=== PATIENT | female | born 1970 | race Caucasian/White ===

== ENCOUNTER 2016-06-07 10:05 | Emergency (ER) | payer OTHER ==
[~2016-06-07] VITALS: Ht 160 cm; Wt 54.4 kg
[2016-06-07] MEDS ORDERED: NEXIUM5 MG PO (10:21)
[2016-06-07] MEDS ORDERED: SINGULAIR5 MG PO (10:22)
[2016-06-07] MEDS ORDERED: CELEXA20 MG PO (10:22)
[2016-06-07] MEDS ORDERED: DEPO PROVER150 MG/M1 IM (10:23)
== END 2016-06-07 13:22 | disposition home or self-care (01) ==
LOC: ED 10:05
DX: S42.402A Unspecified fracture of lower end of left humerus, initial encounter for closed fracture (principal); Z79.899 Other long term (current) drug therapy; Z88.8 Allergy status to other drugs, medicaments and biological substances; V49.9XXA Car occupant (driver) (passenger) injured in unspecified traffic accident, initial encounter; Y93.89 Activity, other specified; Y92.89 Other specified places as the place of occurrence of the external cause; Y99.9 Unspecified external cause status

== ENCOUNTER 2016-11-04 10:04 | Emergency (ER) | payer OTHER ==
[~2016-11-04] VITALS: Ht 160 cm; Wt 99.8 kg
[~2016-11-04 10:04] MED LIST: CELEXA20 MG PO; DEPO PROVER150 MG/M1 IM; NEXIUM5 MG PO; SINGULAIR5 MG PO
[2016-11-04] MEDS ORDERED: TIZANIDINE HCL4 MG PO (10:10)
[2016-11-04] MEDS ORDERED: [UNRECOGNIZED DRUG - OTHER] SL (10:10)
[2016-11-04] MEDS ORDERED: [UNRECOGNIZED DRUG - OTHER] SL (10:10)
[2016-11-04 10:50] LABS: BASO # 0.1 10*3/uL (0.0-0.1); BASO % 0.9 % (0.0-1.0); EOS # 0.3 10*3/uL (0.0-0.4); EOS % 4.1 % (1.0-4.0); HEMOGLOBIN 13.8 g/dl (12.0-16.0); LYMPH # 1.8 10*3/uL (1.3-4.4); LYMPH % 27.4 % (27.0-41.0); MEAN CELL VOLUME 86.2 fl (81.0-99.0); MEAN CORPUSCULAR HGB 27.7 pg (27.0-31.0); MEAN CORPUSCULAR HGB CONC 32.1 g/dl (33.0-37.0); MEAN PLATELET VOLUME 11.5 fl (9.6-12.3); MONO # 0.5 10*3/uL (0.1-1.0); MONO % 7.3 % (3.0-9.0); PLATELET COUNT AUTOMATED 244 10*3/uL (130-400); RED BLOOD COUNT 4.99 10*6/uL (4.10-5.10); RED CELL DISTRI WIDTH 13.7 % (0-14.5); WHITE BLOOD COUNT 6.6 10*3/uL (4.8-10.8)
[2016-11-04 10:55] LABS: BILIRUBIN NEGATIVE (NEGATIVE); BLOOD NEGATIVE (NEGATIVE); CLARITY CLEAR (CLEAR); COLOR YELLOW (YELLOW); GLUCOSE NEGATIVE (NEGATIVE); KETONE NEGATIVE (NEGATIVE); LEUKO ESTERASE NEGATIVE (NEGATIVE); NITRITE NEGATIVE (NEGATIVE); PROTEIN NEGATIVE (NEGATIVE); SPECIFIC GRAVITY 1.015 (1.005-1.030); UROBILINOGEN 0.2 E.U./dl (0.2-1.0)
[2016-11-04 11:05] LABS: ALBUMIN 3.6 gm/dl (3.1-4.5); ALKALINE PHOSPHATASE 94 U/L (45-117); BILIRUBIN, TOTAL 0.4 mg/dl (0.2-1.0); BUN 9 mg/dl (7-24); C-REACTIVE PROTEIN 0.77 MG/DL (0-0.3); CARBON DIOXIDE 26 mmol/L (21-32); CHLORIDE 107 mmol/L (98-107); EST GLOM FILT AFRICAN AMERICAN > 60 ml/min; GLUCOSE 93 mg/dL (65-99); POTASSIUM 3.9 mmol/L (3.5-5.1); SGOT/AST 16 IU/L (3-35); SGPT/ALT 25 U/L (12-78); SODIUM 144 mmol/L (136-145); TOTAL PROTEIN 7.4 gm/dL (6.4-8.2)
[2016-11-04 11:46] LABS: BACTERIA 1+; URINE REFLEX COMMENT NO (NO); WBC 0-2 wbc/hpf (0-5)
[2016-11-04] MEDS ORDERED: ZANTAC 150150 MG PO (11:56)
== END 2016-11-04 12:04 | disposition home or self-care (01) ==
LOC: ED 10:04
PROVIDERS: Physician Assistant
DX: R10.33 Periumbilical pain (principal); Z79.899 Other long term (current) drug therapy; Z88.8 Allergy status to other drugs, medicaments and biological substances; Z88.1 Allergy status to other antibiotic agents; Z98.890 Other specified postprocedural states

== ENCOUNTER → 2017-01-12 | Day surgery (SDC) | payer OTHER ==
[~2017-01-12] VITALS: Ht 160 cm; Wt 99.8 kg
[~2017-01-12] MED LIST changes: +EPIPEN 2-P0.3 MG/0.3 SQ; +TIZANIDINE HCL4 MG PO; +ZANTAC 150150 MG PO; +[UNRECOGNIZED DRUG - OTHER] SL; +[UNRECOGNIZED DRUG - OTHER] SL
--- NOTE | ~2017-01-12 | O ---
[place], [place] OPERATIVE NOTE [id number] UNIT #: [id number] ROOM: DOCTOR: ALTAGRACIA ZAVALA MD BIRTHDATE: [birth year] DOS: 01/12/2017 INDICATIONS: A 46-year-old who has presented with chief complaint of dyspepsia despite the fact that she is on Nexium 40 mg daily. She has also complained of abdominal pain with dyspepsia. ALLERGIES: TO BACTRIM. PAST MEDICAL HISTORY: GERD and anxiety. PAST SURGICAL HISTORY: . PROCEDURE: Today's procedure part of investigation is panendoscopy and colonoscopy. PREMEDICATION: Versed and Diprivan. SCOPE: Olympus folding colonoscope 10L video. REPORT: After putting the patient in the left lateral position and after application of lubricant to the scope, the scope was introduced. Thereafter, under direct visualization, I advanced through the length of colon without difficulty. Difficulty only been at about hepatic flexure, which is fixed because of the and adhesions that she has had. This, however, overcame with the appropriate maneuvers. Ileocecal valve was defined and appendiceal was noticed. Air was suctioned out. The patient was gradually extubated, tolerated the procedure well. IMPRESSION: Normal colonoscopic examination otherwise. PLAN AND DISCUSSION: High fiber fruit diet. On the other hand, we are going to proceed with panendoscopy. ALTAGRACIA ZAVALA MD CM:OPRECORD:OPERATIVE NOTE [id number] ALTAGRACIA ZAVALA MD 01/12/17 1349 interface
--- NOTE | ~2017-01-12 | O ---
[place], [place] OPERATIVE NOTE NAME: [facility] [id number] UNIT #: [id number] ROOM: DOCTOR: SALLY JUNG,ALTAGRACIA BIRTHDATE: [birth year] DOS: 01/12/2017 INDICATIONS: The patient has presented with epigastric abdominal pain. The patient is on Nexium 40 mg every day. PROCEDURE: Today's procedure part of investigation is panendoscopy plus biopsy. PREMEDICATION: Versed and Diprivan. SCOPE: Olympus forward-viewing gastroscope Q10 video. REPORT: After putting the patient in the left lateral position and after application of lubricant to the scope, the scope was introduced. Thereafter, under direct visualization, I advanced through the length of the esophagus without difficulty. Esophagus cervicothoracic distally carefully examined and the small hiatal hernia seen. Mild gastritis noticed. Antral biopsy obtained. Duodenal bulb, second and third part within normal limits. The patient extubated, tolerated procedure well. IMPRESSION: Mild gastritis, small hiatal hernia. PLAN: Status post biopsy for H. pylori. We are awaiting biopsy results and clinical reassessment, antireflux with elevation of the head of the bed 6 inches all time. We are going to organize a CT scan of the abdomen and pelvis with oral and IV contrast in search of abdominal pain if she has not had it already done. We are going to talk to her again postoperatively. ALTAGRACIA ZAVALA MD CM:OPRECORD:OPERATIVE NOTE [id number] ALTAGRACIA ZAVALA MD 01/12/17 1352 interface
[2017-01-12 10:55] VITALS: BP 124/73
[2017-01-12 12:24] VITALS: BP 117/48
[2017-01-12 12:39] VITALS: BP 118/63
[2017-01-12 12:51] VITALS: BP 118/80
== END | disposition home or self-care (01) ==
LOC: SDC 01-10 11:00
DX: K29.50 Unspecified chronic gastritis without bleeding (principal); K44.9 Diaphragmatic hernia without obstruction or gangrene; K21.9 Gastro-esophageal reflux disease without esophagitis; R19.4 Change in bowel habit; F41.9 Anxiety disorder, unspecified; Z88.8 Allergy status to other drugs, medicaments and biological substances; J45.909 Unspecified asthma, uncomplicated; Z87.01 Personal history of pneumonia (recurrent); Z82.49 Family history of ischemic heart disease and other diseases of the circulatory system; Z82.3 Family history of stroke; Z79.899 Other long term (current) drug therapy

== ENCOUNTER 2017-07-01 08:50 | Emergency (ER) | payer OTHER ==
[~2017-07-01] VITALS: Ht 160 cm; Wt 99.8 kg
== END 2017-07-01 11:04 | disposition home or self-care (01) ==
LOC: ED 08:50
DX: S05.02XA Injury of conjunctiva and corneal abrasion without foreign body, left eye, initial encounter (principal); S05.01XA Injury of conjunctiva and corneal abrasion without foreign body, right eye, initial encounter; Z88.2 Allergy status to sulfonamides; Z88.1 Allergy status to other antibiotic agents; X58.XXXA Exposure to other specified factors, initial encounter; Y93.H1 Activity, digging, shoveling and raking; Y92.89 Other specified places as the place of occurrence of the external cause; Y99.8 Other external cause status

== ENCOUNTER 2018-11-24 09:20 | Emergency (ER) | payer OTHER ==
[~2018-11-24] VITALS: Ht 160 cm; Wt 99.8 kg
== END 2018-11-24 10:05 | disposition home or self-care (01) ==
LOC: ED 09:20
DX: L02.415 Cutaneous abscess of right lower limb (principal); L03.115 Cellulitis of right lower limb; Z88.8 Allergy status to other drugs, medicaments and biological substances; Z88.2 Allergy status to sulfonamides; Z79.899 Other long term (current) drug therapy

== ENCOUNTER → 2020-05-22 | Outpatient (CLI) | payer SELFPAY | END | disposition home or self-care (01) | LOC: COVID19 10:10 | PROVIDERS: ATTEND Internal Medicine | DX: U07.1 COVID-19 (principal) ==

== ENCOUNTER 2020-10-30 18:10 | Emergency (ER) | payer OTHER ==
[~2020-10-30] VITALS: Ht 160 cm; Wt 101.2 kg
[2020-10-30] MEDS ORDERED: Motrin,Rufen800 MG PO (21:12)
[2020-10-30] MEDS ORDERED: CYCLOBENZAPRINE5 M3 PO (21:12)
== END 2020-10-30 21:30 | disposition home or self-care (01) ==
LOC: ED 18:10
DX: S39.012A Strain of muscle, fascia and tendon of lower back, initial encounter (principal); M54.6 Pain in thoracic spine; Z88.8 Allergy status to other drugs, medicaments and biological substances; Z88.2 Allergy status to sulfonamides; Z79.899 Other long term (current) drug therapy; Z98.51 Tubal ligation status; Z98.890 Other specified postprocedural states; V89.2XXA Person injured in unspecified motor-vehicle accident, traffic, initial encounter; Y93.I9 Activity, other involving external motion; Y92.488 Other paved roadways as the place of occurrence of the external cause; Y99.8 Other external cause status

== ENCOUNTER 2020-11-19 07:12 | Emergency (ER) | payer OTHER ==
[~2020-11-19] VITALS: Ht 160 cm; Wt 99.8 kg
[~2020-11-19 07:12] MED LIST changes: +CYCLOBENZAPRINE5 M3 PO; +Motrin,Rufen800 MG PO
[2020-11-19 08:27] LABS: ALBUMIN 3.4 gm/dl (3.1-4.5); ALKALINE PHOSPHATASE 90 U/L (45-117); BUN 11 mg/dl (7-24); CHLORIDE 109 mmol/L (98-107); CREATININE 0.84 mg/dL (0.55-1.02); POTASSIUM 3.7 mmol/L (3.5-5.1); SGOT/AST 13 IU/L (3-35); SGPT/ALT 22 U/L (12-78); SODIUM 140 mmol/L (136-145)
[2020-11-19 08:46] LABS: BASO # 0.1 10*3/uL (0.0-0.1); BASO % 0.5 % (0.0-1.0); EOS # 0.2 10*3/uL (0.0-0.4); EOS % 2.3 % (1.0-4.0); HEMATOCRIT 41.4 % (37.0-47.0); LYMPH # 1.6 10*3/uL (1.3-4.4); LYMPH % 14.8 % (27.0-41.0); MEAN CELL VOLUME 87.2 fl (81.0-99.0); MEAN CORPUSCULAR HGB 28.2 pg (27.0-31.0); MEAN CORPUSCULAR HGB CONC 32.4 g/dl (33.0-37.0); MEAN PLATELET VOLUME 11.8 fl (9.6-12.3); MONO # 0.7 10*3/uL (0.1-1.0); NEUT % 75.1 % (47.0-73.0); PLATELET COUNT AUTOMATED 188 10*3/uL (130-400); RED BLOOD COUNT 4.75 10*6/uL (4.10-5.10); RED CELL DISTRI WIDTH 13.2 % (0-14.5); WHITE BLOOD COUNT 10.6 10*3/uL (4.8-10.8)
[2020-11-19] MEDS ORDERED: HYDROCODONE-AC1 EAC1 PO (10:24)
== END 2020-11-19 10:40 | disposition home or self-care (01) ==
LOC: ED 07:12
PROVIDERS: Student in an Organized Health Care Education/Training Program
DX: H04.123 Dry eye syndrome of bilateral lacrimal glands (principal); M54.5 Low back pain; M25.562 Pain in left knee; J30.2 Other seasonal allergic rhinitis; R10.9 Unspecified abdominal pain; R19.7 Diarrhea, unspecified; R11.0 Nausea; Z88.8 Allergy status to other drugs, medicaments and biological substances; Z88.2 Allergy status to sulfonamides; Z79.899 Other long term (current) drug therapy; Z98.51 Tubal ligation status; Z98.890 Other specified postprocedural states

== ENCOUNTER 2022-05-24 11:10 | Emergency (ER) | payer BC ==
[~2022-05-24] VITALS: Ht 160 cm; Wt 103.9 kg
[~2022-05-24 11:10] MED LIST changes: +HYDROCODONE-AC1 EAC1 PO
== END 2022-05-24 14:47 | disposition left against medical advice (07) ==
LOC: ED 11:10
DX: Z53.21 Procedure and treatment not carried out due to patient leaving prior to being seen by health care provider (principal)

== ENCOUNTER 2024-12-22 09:21 | Emergency (ER) | payer OTHER ==
[~2024-12-22] VITALS: Ht 160 cm; Wt 104.3 kg
[~2024-12-22 09:21] MED LIST changes: +AZELASTINE137 MCG/0. NAS; +DICYCLOMINE HYD10 MG PO; +FAMOTIDINE20 M1 PO; +MELOXICAM15 MG PO; +OMEPRAZOLE40 MG PO; +ROSUVASTATIN CAL5 MG PO; +SPIRONOLACTONE100 MG PO; +VITAMIN D350 MC2 PO
[2024-12-22] MEDS ORDERED: SODIUM CHLORIDE 0.9% 1,000 ML IV ONE (09:35)
[2024-12-22 09:48] LABS: BILIRUBIN Negative (Negative); BLOOD Negative (Negative); CLARITY Clear (Clear); COLOR Yellow (Yellow); KETONE Trace (Negative); LEUKO ESTERASE Negative (Negative); NITRITE Negative (Negative); PH 5.5 (4.5-8.0); SPECIFIC GRAVITY 1.025 (1.001-1.030); UROBILINOGEN 0.2 E.U./dl (0.0-1.0)
[2024-12-22 09:48] LABS: BASO # 0.1 10*3/uL (0.0-0.1); BASO % 0.7 % (0.0-1.0); EOS # 0.3 10*3/uL (0.0-0.4); EOS % 4.2 % (1.0-4.0); MEAN CELL VOLUME 87.7 fl (81.0-99.0); MEAN CORPUSCULAR HGB 28.1 pg (27.0-31.0); MEAN PLATELET VOLUME 10.6 fl (9.6-12.3); MONO # 0.7 10*3/uL (0.1-1.0); MONO % 8.7 % (3.0-9.0); NEUT # 4.8 10*3/uL (2.3-7.9); NEUT % 63.9 % (47.0-73.0); NUCLEATED RED BLOOD CELL 0.0 % (0.0-0.0); NUCLEATED RED BLOOD CELL 0.0 10*3/uL (0.0-0.0); PLATELET COUNT AUTOMATED 291 10*3/uL (130-400); RED CELL DISTRI WIDTH 13.1 % (0-14.5)
[2024-12-22 10:11] LABS: BACTERIA TRACE; MUCOUS 1+; WBC 0-2 wbc/hpf (0-5)
[2024-12-22 10:24] LABS: BUN 11 mg/dl (9-23); SGPT/ALT 16 U/L (5-49)
== END 2024-12-22 11:26 | disposition home or self-care (01) ==
LOC: ED 09:21
PROVIDERS: Emergency Medicine
DX: R10.11 Right upper quadrant pain (principal); Z98.890 Other specified postprocedural states; Z88.1 Allergy status to other antibiotic agents; Z88.8 Allergy status to other drugs, medicaments and biological substances